=== PATIENT | female | born 1960 | race Caucasian/White ===

== ENCOUNTER 2017-07-01 12:46 | Emergency (ER) | payer OTHER ==
[2017-07-01] MEDS ORDERED: Adacel (T-DAP) 0.5 ML VIAL ONE (12:53)
== END 2017-07-01 13:00 | disposition home or self-care (01) ==
LOC: BURERS 12:46
DX: S91.332A Puncture wound without foreign body, left foot, initial encounter (principal); Z23 Encounter for immunization; F41.9 Anxiety disorder, unspecified; F17.210 Nicotine dependence, cigarettes, uncomplicated; W45.0XXA Nail entering through skin, initial encounter
CPT/HCPCS: 90471; 90715

== ENCOUNTER 2019-03-05 18:57 | Emergency (ER) | payer OTHER ==
[2019-03-05] MEDS ORDERED: Fluorescein Opthalmic Strip ONE (19:14)
[2019-03-05] MEDS ORDERED: Neomycin-Polymyxin-Hc 7.5 ML BOT ONE (19:24)
== END 2019-03-05 19:35 | disposition home or self-care (01) ==
LOC: BURERS 18:57
DX: S05.01XA Injury of conjunctiva and corneal abrasion without foreign body, right eye, initial encounter (principal); H00.13 Chalazion right eye, unspecified eyelid; F41.9 Anxiety disorder, unspecified; F17.210 Nicotine dependence, cigarettes, uncomplicated; W25.XXXA Contact with sharp glass, initial encounter
CPT/HCPCS: 99283

== ENCOUNTER 2020-05-01 09:23 | Outpatient (CLI) | payer OTHER ==
--- NOTE | 2020-05-01 19:55 | RAD ---
LEFT SHOULDER THREE VIEWS: Date: 05-01-2020 FINDINGS: No fracture, dislocation, or AC joint widening was seen. The visible adjacent ribs appear intact. IMPRESSION: No acute bony findings. POS: HOME
--- NOTE | 2020-05-01 19:59 | RAD ---
LEFT HIP TWO VIEWS: Date: 05-01-2020 FINDINGS: Some very minor osteophytes are seen in the hip. The joint is not narrowed and the articular surfaces seem smooth. No fractures were evident. IMPRESSION: Very minimal arthritic change. POS: HOME
--- NOTE | 2020-05-01 20:04 | RAD ---
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 Other th an this area, there is no disc space narrowing. The oblique views show neural foraminal narrowing on the left at C3-4, C4-5, and C5-6 and on the right at C4-5 and C5-6. No fractures were seen. The soft tissues are normal in thickness. IMPRESSION: Multilevel bilateral foraminal narrowing due to osteophytes, particularly at the C3 through C6 levels . Cross sectional imaging, such as MRI, would be very helpful in determining possible neural impingem ent. POS: HOME
== END 2020-05-01 09:24 | disposition home or self-care (01) ==
LOC: BURRAD 09:23
PROVIDERS: ATTEND Family Medicine
DX: M25.512 Pain in left shoulder (principal); M54.2 Cervicalgia; R10.32 Left lower quadrant pain; M48.02 Spinal stenosis, cervical region; M16.12 Unilateral primary osteoarthritis, left hip
CPT/HCPCS: 72050

== ENCOUNTER 2021-02-20 13:43 | Emergency (ER) | payer OTHER ==
[2021-02-20] MEDS ORDERED: NS 0.9% w/ 20 MEQ KCL 1,000 ML BAG IV ONE (13:44)
[2021-02-20] MEDS ORDERED: Lorazepam 2 MG/ML VIAL ONE ×2 (13:54→19:12)
[2021-02-20] MEDS ORDERED: Haloperidol Lactate 5 MG/ML VIAL ONE (13:55)
[2021-02-20 15:11] LABS: Hemoglobin 13.3 g/dL (12.0-16.0); Mean Corpuscular HGB CONC 34.3 g/dL (32.0-36.0); Mean Corpuscular Hemoglobin 31.5 pg (27.0-31.0); Mean Corpuscular Volume 91.8 fL (78.0-98.0); Mean Platelet Volume 8.2 fL (7.4-10.4); Platelet Count 236 thou/uL (130-400); RBC Distribution Width 11.5 % (11.5-14.5); Red Blood Cell (RBC) Count 4.21 mill/uL (4.20-5.40); White Blood Cell (WBC) Count 11.6 thou/uL (4.8-10.8)
[2021-02-20 15:13] LABS: ALT (SGPT) 40 U/L (8-55); AST (SGOT) 39 U/L (5-34); Acetaminophen Less than 6.0 mcg/mL (10.0-30.0); Albumin 4.2 g/dL (3.4-4.8); Alkaline Phosphatase 63 U/L (40-110); Anion Gap 21 mmol/L (10-20); BUN (Urea Nitrogen) 19 mg/dL (9.8-20.1); Bilirubin, Total 0.7 mg/dL (0.2-1.2); Calc. Creatinine Clearance 0 mL/min (70-130); Calcium 9.2 mg/dL (7.8-10.44); Carbon Dioxide 21 mmol/L (23-31); Chloride 100 mmol/L (98-107); Globulin 3.4 g/dL (2.4-3.5); Glucose 98 mg/dL (80-115); Protein, Total 7.6 g/dL (5.8-8.1); Salicylate Less than 8.0 mg/dL (15.0-30.0); Sodium 139 mmol/L (136-145)
[2021-02-20 15:14] LABS: Potassium 2.9 mmol/L (3.5-5.1)
[2021-02-20 15:28] LABS: Lymphocytes 25 % (21-51); MDiff Complete? YES; Monocytes 11 % (0-10); Neutrophil 63 % (42-75)
[2021-02-20 15:33] LABS: Alcohol Less than 10 mg/dL (Less than 10)
[2021-02-20 16:38] LABS: Bilirubin Moderate (Negative); Blood, Urine Negative (Negative); Clarity Clear (Clear); Glucose, Urine (Dipstick) Negative (Negative); Ketone, Urine 80 mg/dL (Negative); Leukocyte Trace (Negative); Nitrite Negative (Negative); Protein, Urine (Dipstick) 30 mg/dL (Neg-Trace); Specific Gravity, Urine 1.025 (1.005-1.030)
[2021-02-20 16:52] LABS: Bacteria/HPF 1+ HPF (None Seen); RBC/HPF None Seen HPF (0-3); Squamous Epithelial 0-3 HPF (0-3)
[2021-02-20 16:57] LABS: Amphetamine Not Detected (NotDetected); Barbiturates Screen Not Detected (NotDetected); Benzodiazepine Screen Not Detected (NotDetected); Cocaine Metabolite Screen Not Detected (NotDetected); Medtox Control Line Valid? VALID (VALID); Methadone Not Detected (NotDetected); Methamphetamine Not Detected (NotDetected); Opiate Screen Not Detected (NotDetected); Oxycodone Screen Not Detected (NotDetected); Phencyclidine (PCP) Not Detected (NotDetected); THC/Cannabinoid Screen Detected (NotDetected); Tricyclic Screen Not Detected (NotDetected)
[2021-02-20] MEDS ORDERED: Potassium Chloride 20 MEQ TAB ONE ×2 (21:47)
[2021-02-20 22:41] LABS: Potassium 3.3 mmol/L (3.5-5.1)
== END 2021-02-21 00:25 ==
LOC: BURERS 13:43
DX: F29 Unspecified psychosis not due to a substance or known physiological condition (principal); F17.210 Nicotine dependence, cigarettes, uncomplicated
CPT/HCPCS: 80053; 80306; 80307; 81003; 81015; 85025; 87086; 93005; 96365; 96366; 96375; J1630; J2060; J3480

== ENCOUNTER 2021-03-18 09:26 | Emergency (ER) | payer OTHER ==
[2021-03-18] MEDS ORDERED: Lorazepam 0.5 MG TAB ONE (09:47)
[2021-03-18 10:01] LABS: Hemoglobin 15.5 g/dL (12.0-16.0); Mean Corpuscular HGB CONC 32.5 g/dL (32.0-36.0); Mean Corpuscular Hemoglobin 30.5 pg (27.0-31.0); Mean Corpuscular Volume 93.6 fL (78.0-98.0); Mean Platelet Volume 7.7 fL (7.4-10.4); Platelet Count 326 thou/uL (130-400); RBC Distribution Width 11.8 % (11.5-14.5); Red Blood Cell (RBC) Count 5.09 mill/uL (4.20-5.40); White Blood Cell (WBC) Count 17.1 thou/uL (4.8-10.8)
[2021-03-18 10:14] LABS: ALT (SGPT) 44 U/L (8-55); AST (SGOT) 109 U/L (5-34); Acetaminophen Less than 6.0 mcg/mL (10.0-30.0); Albumin 4.7 g/dL (3.4-4.8); Alcohol Less than 10 mg/dL (Less than 10); Alkaline Phosphatase 78 U/L (40-110); Anion Gap 22 mmol/L (10-20); BUN (Urea Nitrogen) 32 mg/dL (9.8-20.1); Bilirubin, Total 0.6 mg/dL (0.2-1.2); Calc. Creatinine Clearance 0 mL/min (70-130); Calcium 10.3 mg/dL (7.8-10.44); Carbon Dioxide 18 mmol/L (23-31); Chloride 104 mmol/L (98-107); Globulin 4.2 g/dL (2.4-3.5); Glucose 131 mg/dL (80-115); Potassium 3.9 mmol/L (3.5-5.1); Protein, Total 8.9 g/dL (5.8-8.1); Salicylate Less than 8.0 mg/dL (15.0-30.0); Sodium 140 mmol/L (136-145)
[2021-03-18 10:23] LABS: Band 13 % (5-11); Lymphocytes 26 % (21-51); MDiff Complete? YES; Monocytes 7 % (0-10); Neutrophil 54 % (42-75)
[2021-03-18 11:27] LABS: Bilirubin Small (Negative); Blood, Urine Trace (Negative); Clarity Slightly Cloudy (Clear); Glucose, Urine (Dipstick) Negative (Negative); Ketone, Urine 15 mg/dL (Negative); Leukocyte Small (Negative); Nitrite Positive (Negative); Protein, Urine (Dipstick) 100 mg/dL (Neg-Trace); Urobilinogen 0.2 mg/dL (Less than 2)
[2021-03-18 11:29] LABS: Specific Gravity, Urine 1.024 (1.002-1.036)
[2021-03-18 11:35] LABS: Cocaine Metabolite Screen Detected (NotDetected); Phencyclidine (PCP) Not Detected (NotDetected); THC/Cannabinoid Screen Detected (NotDetected)
[2021-03-18 11:36] LABS: Amphetamine Detected (NotDetected); Barbiturates Screen Not Detected (NotDetected); Benzodiazepine Screen Not Detected (NotDetected); Medtox Control Line Valid? VALID (VALID); Methadone Not Detected (NotDetected); Methamphetamine Detected (NotDetected); Opiate Screen Not Detected (NotDetected); Oxycodone Screen Not Detected (NotDetected); RBC/HPF 0-3 HPF (0-3); Tricyclic Screen Not Detected (NotDetected); WBC/HPF 21-50 HPF (0-3)
[2021-03-18 11:37] LABS: Bacteria/HPF 2+ HPF (None Seen); Epithelial Cast 0-3 LPF (None Seen); Squamous Epithelial 0-3 HPF (0-3)
[2021-03-18] MEDS ORDERED: Albuterol Sulfate 2.5 mg/0.5 ml Neb ONE (11:43)
[2021-03-18] MEDS ORDERED: Sulfameth/Trimethoprim DS 800-160mg TAB ONE (16:46)
== END 2021-03-18 17:32 ==
LOC: BURERS 09:26
DX: R45.1 Restlessness and agitation (principal); F22 Delusional disorders; F19.10 Other psychoactive substance abuse, uncomplicated; N39.0 Urinary tract infection, site not specified; F17.210 Nicotine dependence, cigarettes, uncomplicated
CPT/HCPCS: 36415; 80053; 80306; 80307; 81003; 81015; 84443; 85025; 87077; 87086; 87186; 94640; J7611

== ENCOUNTER 2022-12-27 04:12 | Emergency (ER) | payer OTHER ==
[2022-12-27] MEDS ORDERED: HYDROcodone/Acetaminophen 10/325 mg Tablet ONE (04:42)
== END 2022-12-27 05:04 | disposition home or self-care (01) ==
LOC: BURERS 04:12
DX: G89.4 Chronic pain syndrome (principal); F17.210 Nicotine dependence, cigarettes, uncomplicated; Z79.899 Other long term (current) drug therapy
CPT/HCPCS: 99283

== ENCOUNTER 2023-04-22 09:05 | Emergency (ER) | payer OTHER ==
[2023-04-22] MEDS ORDERED: Ketorolac Tromethamine 30 MG/ML VIAL ONE (09:33)
== END 2023-04-22 09:41 | disposition home or self-care (01) ==
LOC: BURERS 09:05
DX: M79.18 Myalgia, other site (principal); F17.210 Nicotine dependence, cigarettes, uncomplicated
CPT/HCPCS: 96374; J1885

== ENCOUNTER 2023-08-10 17:24 | Emergency (ER) | payer OTHER ==
[2023-08-10 18:20] LABS: #Lymphocytes 0.4 thou/uL (1.20-3.40); #Monocytes 0.2 thou/uL (0.11-0.59); #Neutrophils 1.6 thou/uL (1.40-6.50); %Basophils 1.5 % (0.0-1.0); %Eosinophils 2.2 % (0.0-10.0); %Lymphocytes 19.2 % (21.0-51.0); %Monocytes 8.2 % (0.0-10.0); %Neutrophils 68.9 % (42.0-75.0); Hematocrit 25.7 % (36.0-47.0); Hemoglobin 8.3 g/dL (12.0-16.0); Mean Corpuscular HGB CONC 32.3 g/dL (32.0-36.0); Mean Corpuscular Hemoglobin 28.8 pg (27.0-31.0); Mean Corpuscular Volume 89.2 fl (78.0-98.0); Mean Platelet Volume 6.2 fL (7.4-10.4); Platelet Count 226 10x3/uL (130-400); RBC Distribution Width 17.7 % (11.5-14.5); Red Blood Cell (RBC) Count 2.89 mill/uL (4.20-5.40); White Blood Cell (WBC) Count 2.3 10x3/uL (4.8-10.8)
[2023-08-10 18:37] LABS: ALT (SGPT) 11 U/L (8-55); AST (SGOT) 14 U/L (5-34); Albumin 3.8 g/dL (3.4-4.8); Alkaline Phosphatase 63 U/L (40-110); Anion Gap 14 mmol/L (10-20); BUN (Urea Nitrogen) 10 mg/dL (9.8-20.1); Bilirubin, Total 0.6 mg/dL (0.2-1.2); Calc. Creatinine Clearance 0 mL/min (70-130); Calcium 8.8 mg/dL (7.8-10.44); Carbon Dioxide 21 mmol/L (23-31); Chloride 103 mmol/L (98-107); Estimated GFR 100; Globulin 3.8 g/dL (2.4-3.5); Glucose 109 mg/dL (80-115); Potassium 2.7 mmol/L (3.5-5.1); Protein, Total 7.6 g/dL (5.8-8.1); Sodium 135 mmol/L (136-145)
[2023-08-10] MEDS ORDERED: Potassium Chloride 20 MEQ TAB ONE (18:51)
[2023-08-10 18:58] LABS: SARS-CoV-2 NAA Rapid Test Not Detected (NotDetected)
== END 2023-08-10 18:54 | disposition home or self-care (01) ==
LOC: BURERS 17:24
DX: J02.9 Acute pharyngitis, unspecified (principal); E86.0 Dehydration; E87.6 Hypokalemia; F17.210 Nicotine dependence, cigarettes, uncomplicated; Z20.822 Contact with and (suspected) exposure to COVID-19
CPT/HCPCS: 36415; 71045; 80053; 83605; 85025; 87081; 87430

== ENCOUNTER 2024-05-14 17:10 | Emergency (ER) | payer OTHER ==
[2024-05-14] MEDS ORDERED: LevoFLOXacin 500 MG TAB ONE (17:39)
[2024-05-14] MEDS ORDERED: Ipratropium/Albuterol 3 ML NEB ONE (17:39)
[2024-05-14] MEDS ORDERED: predniSONE 20 MG TAB ONE (17:39)
== END 2024-05-14 18:09 | disposition home or self-care (01) ==
LOC: BURERS 17:10
DX: J44.1 Chronic obstructive pulmonary disease with (acute) exacerbation (principal); C34.90 Malignant neoplasm of unspecified part of unspecified bronchus or lung; F17.210 Nicotine dependence, cigarettes, uncomplicated
CPT/HCPCS: 71045; 94640; J7512; J7620